=== PATIENT | female | born 1960 | race American Indian/Alaskan Native ===

== ENCOUNTER 2016-12-17 08:35 | Emergency (ER) | payer OTHER ==
[2016-12-17 08:37] VITALS: BMI 34.7
--- NOTE | 2016-12-17 09:23 | ED PDOC ---
Lower Extremity Pain/Injury Time Seen by Provider: 12/17/16 09:00 Chief Complaint (Nursing): Lower Extremity Problem/Injury Chief Complaint (Provider): Lower Extremity Problem/Injury History Per: Patient History/Exam Limitations: no limitations Onset/Duration Of Symptoms: Days Current Symptoms Are (Timing): Still Present Severity: Moderate Additional Complaint(s): Patient is a 56 year old female who presents to ED for let foot pain for 4 days. Patient state that 4 days ago a melody wearing boots stepped on her foot, notes pain to that area since the incident. Reports continued pain and swelling. Past Medical History Reviewed: Historical Data, Nursing Documentation, Vital Signs Vital Signs: Last Vital Signs Temp 97.9 F 12/17/16 08:38 Pulse 68 12/17/16 08:38 Resp 19 12/17/16 08:38 BP 164/86 H 12/17/16 08:38 Pulse Ox 100 12/17/16 08:38 - Medical History PMH: Diabetes, HTN - Surgical History Surgical History: No Surg Hx - Family History Family History: States: No Known Family Hx - Living Arrangements Living Arrangements: With Family - Home Medications Home Medications: Ambulatory Orders Medication Instructions Recorded Sodium Chloride [Saline Nasal 45 ml NS TID #1 spr 06/03/14 [place] 45 ml] Acetaminophen/Hydrocodone Bi 1 tab PO Q6 PRN #20 tab 06/26/14 [Hydrocodone Bitartrate/APAP 325 mg-5 mg] - Allergies Allergies/Adverse Reactions: Allergies Allergy/AdvReac Type Severity Reaction Status Date / Time metformin Allergy RASH Verified 12/17/16 08:58 Review of Systems Cardiovascular: Negative for: Chest Pain Respiratory: Negative for: Shortness of Breath Musculoskeletal: Positive for: Foot Pain. Negative for: Back Pain, Leg Pain Neurological: Negative for: Weakness, Numbness Physical Exam - Reviewed Nursing Documentation Reviewed: Yes Vital Signs Reviewed: Yes - Physical Exam Appears: Positive for: Non-toxic, No Acute Distress Skin: Positive for: Normal Color, Warm Eye Exam: Positive for: Normal appearance Neck: Positive for: Normal, Painless ROM Back: Positive for: Normal Inspection Extremity: Positive for: Normal ROM, Tenderness (Left foot swelling and tenderness to dosum and lateral malleolous. neurovascular intact. normal pulses and skin color. cap refill less than 2 s.). Negative for: Calf Tenderness, Deformity Neurologic/Psych: Positive for: Alert, Oriented - ECG O2 Sat by Pulse Oximetry: 100 (RA) Pulse Ox Interpretation: Normal Medical Decision Making Medical Decision Making: Time: 0915 Initial impression: Foot injury r/o fracture Initial plan: -- Motrin PO -- Foot/ Ankle Xray Time: 1050 Ankle Xray results PROCEDURE: Left Ankle Radiographs. HISTORY: ankle inkjury COMPARISON: None FINDINGS: BONES: There is an acute mildly displaced fracture in the lateral malleolus. There is no acute displaced fracture in the visualized tibia. There is diffuse bone demineralization. There is a prominent plantar calcaneal spur and dorsal calcaneal enthesophyte. JOINTS: No osteoarthritis. Ankle mortise maintained. Talar dome intact there is a small joint effusion. SOFT TISSUES: There is moderate lateral soft tissue swelling. OTHER FINDINGS: None. IMPRESSION: Acute mildly displaced fracture in the lateral malleolus and moderate lateral soft tissue swelling. Time: 1051 Foot Xray results PROCEDURE: Left Foot Radiographs. HISTORY: ankle pain COMPARISON: None. FINDINGS: BONES: There is diffuse bone demineralization. There is no acute fracture or bone destruction. 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 The remaining joint spaces are preserved. SOFT TISSUES: Normal. OTHER FINDINGS: None. IMPRESSION: No acute displaced fracture or dislocation. Time: 1145 Podiatry consulted, will evaluate patient at bedside. Time: 1215 Patient evaluated by podiatry, foot wrapped and scheduled for follow up outpatient. Scribe Attestation: Documented by Guera Murphy acting as a scribe for Carmelina Remy MD MD Scribe Attestation: All medical record entries made by the Scribe were at my direction and personally dictated by me. I have reviewed the chart and agree that the record accurately reflects my personal performance of the history, physical exam, medical decision making, and the department course for this patient. I have also personally directed, reviewed, and agree with the discharge instructions and disposition. Disposition - Clinical Impression Clinical Impression: Ankle fracture - Patient ED Disposition Is Patient to be Admitted: No Counseled Patient/Family Regarding: Studies Performed, Diagnosis, Need For Followup - Disposition Referrals: [facility] [Outside] Podiatry Clinic [Outside] Disposition: Routine/Home Disposition Time: 10:30 Condition: GOOD Additional Instructions: follow up with podiatry clinic in one week. return to the ED with any worsening or concerning symptoms. Instructions: Ankle Fracture (ED) Forms: [facility] ED School/Work Excuse
--- NOTE | 2016-12-17 10:52 | RAD ---
PROCEDURE: Left Ankle Radiographs. HISTORY: ankle inkjury COMPARISON: None FINDINGS: BONES: There is an acute mildly displaced fracture in the lateral malleolus. There is no acute displaced fracture in the visualized tibia. There is diffuse bone demineralization. There is a prominent plantar calcaneal spur and dorsal calcaneal enthesophyte. JOINTS: No osteoarthritis. Ankle mortise maintained. Talar dome intact there is a small joint effusion. SOFT TISSUES: There is moderate lateral soft tissue swelling. OTHER FINDINGS: None. IMPRESSION: Acute mildly displaced fracture in the lateral malleolus and moderate lateral soft tissue swelling.
--- NOTE | 2016-12-17 10:53 | RAD ---
PROCEDURE: Left Foot Radiographs. HISTORY: ankle pain COMPARISON: None. FINDINGS: BONES: There is diffuse bone demineralization. There is no acute fracture or bone destruction. 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 The remaining joint spaces are preserved. SOFT TISSUES: Normal. OTHER FINDINGS: None. IMPRESSION: No acute displaced fracture or dislocation.
--- NOTE | 2016-12-17 12:38 | CP.PCM.CON ---
History of Present Illness - History of Present Illness History of Present Illness: 56 year old female with PMHx of DM, HTN presents to the ED with left ankle pain. She state that on Thursday someone stepped on her ankle and she has been having pain ever since. She states that she tried ice and advil to help with the pain but they provided little relief. She admits to swelling and pain on the outside of her ankle. Admits to trouble walking due to the pain. She denies any n/v/f/c/sob/cp. Past Patient History - Past Social History Smoking Status: Light Smoker < 10 Cigarettes Daily - CARDIAC Hx Hypertension: Yes - ENDOCRINE/METABOLIC Hx Diabetes Mellitus Type 2: Yes - PSYCHIATRIC Hx Substance Use: No - SURGICAL HISTORY Hx Surgeries: Yes Hx Tonsillectomy: Yes Other/Comment: Right Knee - ANESTHESIA Hx Anesthesia: Yes Hx Anesthesia Reactions: No Meds Allergies/Adverse Reactions: Allergies Allergy/AdvReac Type Severity Reaction Status Date / Time metformin Allergy RASH Verified 12/17/16 08:58 Physical Exam - Constitutional Appears: Well, Non-toxic, No Acute Distress - Extremities Exam Additional comments: Vasc: DP and PT pulses are palpable 2/4 b/l. CFT < 3 seconds to all digits b/l. Skin temperature is warm to warm proximal to distal. Non-pitting edema noted to the ankle circumferential. Neuro: Protective sensation is intact. Pain sensation is intact. Derm: No open lesions noted. Ecchymosis noted over the lateral malleolus. Ortho: Pain with eversion, inversion, plantarflexion, and dorsiflexion on the left. Pain on palpation of the lateral malleolus, ATFL, PTFL, and CFL on the left. No pain with palpation of Achilles or compression of calf muscle b/l. . - Neurological Exam Neurological exam: Alert, Oriented x3 - Psychiatric Exam Psychiatric exam: Normal Affect, Normal Mood Results - Vital Signs Recent Vital Signs: Last Vital Signs Temp 97.9 F 12/17/16 08:38 Pulse 68 12/17/16 08:38 Resp 19 12/17/16 08:38 BP 164/86 H 12/17/16 08:38 Pulse Ox 100 12/17/16 11:55 Assessment & Plan - Assessment and Plan (Free Text) Assessment: 56 year old female with left lateral malleolus fracture Plan: Patient examined and evaluated Chart and vitals reviewed Discussed in detail with attending, Dr. Caldwell Radiograph reviewed- mildly displaced fibular fracture noted to the left ankle Patient dressed with modified woods compressive dressing and posterior splint Patient instructed to remain non-WB with crutches/ rolling walker until she follows up in podiatry clinic Patient instructed on proper use of crutches, and given Rx for rolling walker Patient to keep dressing clean, dry, intact, and do not get dressing wet Patient to follow up in Podiatry clinic Thursday
[2016-12-17 13:53] VITALS: BP 120/78; PULSE 78; RESP 20; TEMP 97.6
[2016-12-19 05:32] VITALS: O2SAT 100
== END 2016-12-17 13:53 | disposition home or self-care (01) ==
LOC: H.ER 08:35
DX: S82.892A Other fracture of left lower leg, initial encounter for closed fracture (principal); W22.8XXA Striking against or struck by other objects, initial encounter; Y92.89 Other specified places as the place of occurrence of the external cause; E11.9 Type 2 diabetes mellitus without complications; I10 Essential (primary) hypertension

== ENCOUNTER 2017-05-10 12:27 | Inpatient (IN) | payer OTHER ==
[~2017-05-10 12:27] MED LIST: Pneumococcal 23-Valent Vaccine IM ONE
[2017-05-10 12:28] VITALS: BMI 34.7
[2017-05-10] MEDS ORDERED: Sodium Chloride 0.9% 1,000 ML IV STA ×3 (12:50→17:22)
--- NOTE | 2017-05-10 13:11 | ED PDOC ---
Hyperglycemia/Hypoglycemia Chief Complaint (Nursing): High Blood Sugar Chief Complaint (Provider): Dizziness, weakness History Per: Patient History/Exam Limitations: no limitations Onset/Duration Of Symptoms: Other (one week) : The patient does not have any of the infectious symptoms listed except for those marked. Additional Complaint(s): Patient is a 56 y/o female with a past medical history of diabetes and hypertension presenting to the emergency department for dizziness and generalized weakness since last week with associated urinary frequency. Denies abdominal pain and vomiting. Of note, patient takes Glyburide 2 mg/2 tabs twice per day. PCP: none provided. Past Medical History Reviewed: Historical Data, Nursing Documentation, Vital Signs Vital Signs: Last Vital Signs Temp 98.0 F 05/10/17 12:29 Pulse 58 L 05/10/17 12:29 Resp 19 05/10/17 12:29 BP 130/78 05/10/17 12:29 Pulse Ox 100 05/10/17 12:29 - Medical History PMH: Diabetes, HTN - Surgical History Surgical History: Tonsillectomy - Family History Family History: States: Unknown Family Hx - Living Arrangements Living Arrangements: Other (homeless) - Social History Current smoker - smoking cessation education provided: Yes (less than ten cigarettes per day) Ex-Smoker (has not smoked in the last 12 months): No Alcohol: Social Drugs: Denies - Home Medications Home Medications: Ambulatory Orders Medication Instructions Recorded Atorvastatin [Lipitor] 10 mg PO DAILY 05/10/17 Benazepril/Hydrochlorothiazide 1 tab PO DAILY 05/10/17 [Benazepril-Hctz 20-25 mg Tab] Glimepiride [amaRYL] 4 mg PO DAILY 05/10/17 Metoprolol Tartrate [Lopressor] 50 mg PO BID 05/10/17 - Allergies Allergies/Adverse Reactions: Allergies Allergy/AdvReac Type Severity Reaction Status Date / Time metformin Allergy RASH Verified 12/17/16 08:58 Review of Systems ROS Statement: Except As Marked, All Systems Reviewed And Found Negative Constitutional: Positive for: Weakness (generalized) Gastrointestinal: Negative for: Vomiting, Abdominal Pain Genitourinary Female: Positive for: Frequency Neurological: Positive for: Dizziness Physical Exam - Reviewed Nursing Documentation Reviewed: Yes Vital Signs Reviewed: Yes - Physical Exam Appears: Positive for: No Acute Distress Head Exam: Positive for: ATRAUMATIC, NORMAL INSPECTION, NORMOCEPHALIC Skin: Positive for: Normal Color, Warm, Dry Eye Exam: Positive for: EOMI, Normal appearance, PERRL Neck: Positive for: Normal, Painless ROM, Supple Cardiovascular/Chest: Positive for: Chest Non Tender, Bradycardia. Negative for : Murmur Respiratory: Positive for: Normal Breath Sounds. Negative for: Accessory Muscle Use, Respiratory Distress Gastrointestinal/Abdominal: Positive for: Normal Exam, Soft. Negative for: Tenderness Extremity: Positive for: Normal ROM. Negative for: Pedal Edema Neurologic/Psych: Positive for: Alert, Oriented (x3) - Laboratory Results Result Diagrams: 05/10/17 13:00 05/10/17 16:30 - ECG ECG Rhythm: Positive for: Sinus Bradycardia Interpretation Of ECG: Rate: 46 bpm O2 Sat by Pulse Oximetry: 100 (RA) Pulse Ox Interpretation: Normal - Progress ED Course And Treament: BS > 500 noted in ED EKG: Sinus bradycardia 46 bpm no ectopy no acute changes INsulin 10 units iv x 1 dose NS 1 liter wide open x 2 venous blood gas reviewed. lactate elevated (due to dehydration) venous ph 7.39 Repeat Blood sugar 430. Insulin 4 units iv NS 3rd liter 500 ml per darrian d/w Dr. Gaona d/w Dr. Stock for admission Medical Decision Making Medical Decision Making: Time: 12:49 Initial plan: Labs EKG ED Urine Dipstick Chest X-Ray Normal Saline Urine Culture Urinalysis Reevaluation 13:55 Chest x-ray reviewed and findings noted as follows: LUNGS: The lungs are well inflated and clear. PLEURA: No pneumothorax or pleural fluid seen. CARDIOVASCULAR: Normal. OSSEOUS STRUCTURES: No significant abnormalities. VISUALIZED UPPER ABDOMEN: Normal. OTHER FINDINGS: None. IMPRESSION: No active pulmonary disease. Scribe Attestation: Documented by Heather Wilcox, acting as a scribe for HIEN Marks. Provider Scribe Attestation: All medical record entries made by the Scribe were at my direction and personally dictated by me. I have reviewed the chart and agree that the record accurately reflects my personal performance of the history, physical exam, medical decision making, and the department course for this patient. I have also personally directed, reviewed, and agree with the discharge instructions and disposition. Disposition - Clinical Impression Clinical Impression: Hyperglycemia - Patient ED Disposition Is Patient to be Admitted: Yes - Disposition Disposition Time: 17:45 Condition: FAIR Forms: [facility] ([place]) - Pt Status Changed To: Hospital Disposition Of: Observation
[2017-05-10 13:12] LABS: BASO % 0.6 % (0.0-2.0); EOS % 0.6 % (0.0-4.0); HEMATOCRIT 38.9 % (34.0-47.0); LYMPH # 2.1 K/uL (1.0-4.3); LYMPH % 30.5 % (20.0-40.0); MEAN CELL VOLUME 92.5 fl (81.0-99.0); MEAN CORPUSCULAR HEMOGLOBIN 30.7 pg (27.0-31.0); MEAN CORPUSCULAR HGB CONC 33.2 g/dL (33.0-37.0); MEAN PLATELET VOLUME 9.2 fl (7.2-11.7); MONO # 0.5 K/uL (0.0-0.8); MONO % 6.9 % (0.0-10.0); NEUT # 4.1 K/uL (1.8-7.0); NEUT % 61.4 % (50.0-75.0); RED CELL DISTRIBUTION WIDTH 12.3 % (11.5-14.5); WHITE BLOOD COUNT 6.8 K/uL (4.8-10.8)
[2017-05-10 13:18] LABS: RBC URINE 2 /hpf (0-3); URINE BACTERIA RARE (<OCC); URINE BILIRUBIN NEGATIVE (NEGATIVE); URINE BLOOD NEGATIVE (NEGATIVE); URINE COLOR STRAW (YELLOW); URINE GLUCOSE (UA) >=500 mg/dL (Normal); URINE KETONE NEGATIVE (NEGATIVE); URINE LEUKOCYTE ESTERASE NEG Leu/uL (Negative); URINE PROTEIN NEGATIVE (NEGATIVE); URINE UROBILINOGEN 0.2-1.0 mg/dL (0.2-1.0); WBC URINE 2 /hpf (0-5)
[2017-05-10 13:26] LABS: ALB/GLOB RATIO 1.9 (1.0-2.1); ALKALINE PHOSPHATASE 98 U/L (38-126); ALT/SGPT 28 U/L (9-52); AST/SGOT 15 U/L (14-36); BILIRUBIN,TOTAL 0.9 mg/dl (0.2-1.3); BLOOD UREA NITROGEN 20 mg/dl (7-17); CALCIUM 9.9 mg/dL (8.4-10.2); CARBON DIOXIDE 26 mmol/L (22-30); CHLORIDE 90 mmol/L (98-107); GFR AFRICAN-AMERICAN > 60; POTASSIUM 4.5 MMOL/L (3.6-5.0); SODIUM 130 mmol/l (132-148); TOTAL PROTEIN 6.8 G/DL (6.3-8.2)
[2017-05-10 13:39] LABS: VENOUS BLOOD GAS BASE EXCESS 2.8 mmol/L (0.0-2.0); VENOUS BLOOD GAS PCO2 47 mmHg (40-60); VENOUS BLOOD PH 7.39 (7.32-7.43)
[2017-05-10 13:49] LABS: GLUCOSE,RANDOM 848 mg/dL (65-105)
--- NOTE | 2017-05-10 13:57 | RAD ---
PROCEDURE: CHEST RADIOGRAPH, 1 VIEW HISTORY: ROUTINE COMPARISON: None available. FINDINGS: LUNGS: The lungs are well inflated and clear. PLEURA: No pneumothorax or pleural fluid seen. CARDIOVASCULAR: Normal. OSSEOUS STRUCTURES: No significant abnormalities. VISUALIZED UPPER ABDOMEN: Normal. OTHER FINDINGS: None. IMPRESSION: No active pulmonary disease.
[2017-05-10] MEDS ORDERED: Insulin Regular 100 units/ml IVP STA (14:19)
[2017-05-10 16:43] LABS: BLOOD UREA NITROGEN 15 mg/dl (7-17); CALCIUM 9.3 mg/dL (8.4-10.2); CARBON DIOXIDE 24 mmol/L (22-30); CHLORIDE 101 mmol/L (98-107); GFR AFRICAN-AMERICAN > 60; GLUCOSE,RANDOM 396 mg/dL (65-105); POTASSIUM 3.9 MMOL/L (3.6-5.0); SODIUM 135 mmol/l (132-148)
[2017-05-10] MEDS ORDERED: Insulin Regular 100 units/ml IVP ONE ×2 (17:22→18:27)
[2017-05-10] MEDS ORDERED: Insulin Regular 100 units/ml SC SCH (23:15)
[2017-05-11] MEDS ORDERED: Pneumococcal 23-Valent Vaccine IM ONE (06:00)
[2017-05-11 06:16] LABS: HEMATOCRIT 37.4 % (34.0-47.0); MEAN CELL VOLUME 91.7 fl (81.0-99.0); MEAN CORPUSCULAR HEMOGLOBIN 30.6 pg (27.0-31.0); MEAN CORPUSCULAR HGB CONC 33.4 g/dL (33.0-37.0); RED CELL DISTRIBUTION WIDTH 12.4 % (11.5-14.5); WHITE BLOOD COUNT 6.6 K/uL (4.8-10.8)
[2017-05-11 06:23] LABS: ALKALINE PHOSPHATASE 76 U/L (38-126); ALT/SGPT 27 U/L (9-52); AST/SGOT 14 U/L (14-36); BILIRUBIN,TOTAL 0.9 mg/dl (0.2-1.3); BLOOD UREA NITROGEN 14 mg/dl (7-17); CALCIUM 9.5 mg/dL (8.4-10.2); CARBON DIOXIDE 24 mmol/L (22-30); CHLORIDE 103 mmol/L (98-107); CHOLESTEROL 164 mg/dL (0-199); GFR AFRICAN-AMERICAN > 60; GLUCOSE,RANDOM 356 mg/dL (65-105); POTASSIUM 3.9 MMOL/L (3.6-5.0); SODIUM 137 mmol/l (132-148); TOTAL PROTEIN 5.6 G/DL (6.3-8.2)
[2017-05-11 06:24] LABS: ALB/GLOB RATIO 1.5 (1.0-2.1)
[2017-05-11] MEDS: Insulin Regular 100 units/ml SC SCH ×2 (06:45→13:42)
[2017-05-11 06:53] LABS: THYROID STIMULATING HORMONE 0.61 mIU/ML (0.46-4.68)
[2017-05-11] MEDS ORDERED: GlipiZIDE 10 mg SR Tab PO SCH (09:00)
[2017-05-11] MEDS ORDERED: BENAZEPRIL PO SCH (09:00)
[2017-05-11] MEDS ORDERED: HYDROCHLOROTHIAZIDE PO SCH (09:00)
[2017-05-11] MEDS: Enoxaparin 40 mg Syringe SC SCH (09:42)
--- NOTE | 2017-05-11 10:57 | CARD ---
APPROVED REPORT EKG Measurement Heart [id number] <Conclusion> Sinus bradycardia Septal infarct, age undetermined Abnormal ECG
[2017-05-11] MEDS: GlipiZIDE 10 mg SR Tab PO SCH (18:03)
[2017-05-11] MEDS: Insulin Lispro (humaLOG) 100 Units/ml Inj SC SCH ×3 (18:04→21:47)
--- NOTE | 2017-05-11 19:31 | HP ---
DATE OF ADMISSION: CHIEF COMPLAINT: Dizziness and weakness. HISTORY OF PRESENT ILLNESS: This is a 56-year-old female known case of diabetes, hypertension, noncompliance in medications and medical followup who has not seen doctor for few months, was feeling very weak and dizzy. The patient was seen in emergency room where the patient was found to have blood sugar of 800, so the patient was admitted for further management. REVIEW OF SYSTEMS: Positive for generalized malaise, weakness, fatigue, tired, dizziness. Review of systems negative for headache, loss of consciousness, chest pain, shortness of breath, nausea, vomiting, diarrhea, constipation, any new joint or extremity pain. Review of systems of all other organ system is unremarkable. PAST MEDICAL HISTORY: Significant for hypertension and diabetes. PAST SURGICAL HISTORY: Remarkable for tonsil surgery. PERSONAL HISTORY: The patient is currently nonsmoker, nondrinker, no substance abuse. The patient has active smoking of less than 10 cigarettes a day. ALLERGIES: THE PATIENT IS NOT ALLERGIC TO ANY MEDICATION OTHER THAN METFORMIN. MEDICATIONS: The patient is on atorvastatin, glimepiride, and metoprolol. FAMILY HISTORY: The patient's family history is noncontributory. PHYSICAL EXAMINATION: GENERAL: Well built, well nourished, overweight 56-year-old female in no acute distress. VITAL SIGNS: Temperature 97.9, pulse 53, respirations 20, blood pressure 123/54. HEENT: Pupils are reacting to light. No nystagmus. Normocephalic and atraumatic skull. NECK: No JVD. No thyromegaly. No lymphadenopathy. HEART: S1 and S2 normal, regular. No significant murmur, gallop, or rub. LUNGS: Shows good bilateral air entry. No rales or rhonchi. ABDOMEN: Soft, nontender. No organomegaly. No fluid. Bowel sounds are present. EXTREMITIES: No edema. No calf swelling. No tenderness. No acute ischemia. CENTRAL NERVOUS SYSTEM: Essentially unchanged. There is no sign of any acute gross focal, motor, or sensory neurological deficit. DIAGNOSTIC DATA: Available diagnostic data reviewed. WBC 6.6, hemoglobin 7.7, hematocrit 37.5, platelet 152. Sodium 137, potassium 3.9, chloride 103, bicarb 24, BUN 17, creatinine 0.6. Accu-Cheks 351, 320, 339, 362, and 366. SMA-12 is unremarkable. Troponin level was less than 0.01. Chest x-ray, prior EKG does not show any acute SVT changes. IMPRESSION: Type 2 diabetes with hyperglycemia, hypertension, elevated cholesterol. On telemetry monitoring does not reveal any significant arrhythmias. PLAN: Plan as ordered. Case and plan discussed with patient. Eamon Stock MD
[2017-05-11] MEDS ORDERED: Insulin Detemir 100 Units/ml Inj SC SCH ×2 (22:00)
--- NOTE | 2017-05-12 02:11 | CON ---
DATE: ENDOCRINOLOGY CONSULT LOCATION: Room [address], [address] [place] [address] HISTORY OF PRESENT ILLNESS: This is a 56-year-old female with known history of type 2 insulin-requiring diabetes presenting here with generalized body weakness and supervening dizziness and lightheadedness and is now being referred for diabetic evaluation and management. PAST MEDICAL HISTORY: History of type 2 insulin-requiring diabetes, previously on Lantus, which has been discontinued and is currently on Amaryl given as 4 mg once daily as ordered, history of hypertension and dyslipidemia. FAMILY HISTORY: Positive for diabetes and hypertension. SOCIAL HISTORY: The patient admits to homelessness and lives in a [facility] locally as noted. Also admits to cigarette smoking about half a pack a day for many years now. No other known substance use. REVIEW OF SYSTEMS: As mentioned above. Admits to generalized body weakness with progressively worsening dizziness and lightheadedness and increasing somnolence and lethargy as noted. No chest pains or palpitations or PND's. However, admits to increasing bouts of shortness of breath, especially on exertion. Her oral intake is variable with nausea, dyspepsia and vague upper abdominal pain. Also admits to marked polyuria, nocturia, polyphagia, and about 5-pound or so weight loss. Also admits to lower extremity paresthesias, especially nocturnally. PHYSICAL EXAMINATION: GENERAL/VITAL SIGNS: An average built female in no apparent distress with a blood pressure of 140/80, pulse of 70 beats per minute regular, temperature 98, respirations 20, height is 5.6, and weight is 180. HEENT: Head is normocephalic. Eyes; anicteric with pink conjunctivae. Funduscopy not possible at this time. Ears, nose and throat are otherwise normal. NECK: Supple. Thyroid gland is normal in size. No carotid bruits or cervical adenopathy. Cardiopulmonary: Some adynamic precordium. S1 and S2 is rapid and regular. LUNGS: Clear to auscultation. ABDOMEN: Flat and soft with positive bowel sounds. EXTREMITIES: No peripheral edema. Pulses are +2 bilaterally. SKIN: The skin turgor is coarse and dry and buccal mucosa is parched and dry. LABORATORY DATA: Hemoglobin is 12.9, hematocrit of 38.9, MCV 92, platelets 320, and WBC 6.8. Initial chemistry showed a BUN of 20, sodium 130, potassium 4.5, chloride 90, CO2 26, glucose 848, and creatinine 0.6. Her glucose levels have ranged from 413 to over 500 mg/dL. Her hemoglobin A1c is 21.4%, which is extremely elevated and indicative of suboptimal metabolic control of her diabetic condition and clearly also would be insulin-requiring with this nature and degree of elevation. ASSESSMENT: This is a 56-year-old female with uncontrolled and decompensated type 2 insulin requiring diabetes presenting here with hyperosmolar hyperglycemic state and dehydration with spurious hyponatremia and prerenal azotemia as noted thereof. There is a very strong adherence factor in terms of her compliance to insulin therapy, as she was previously on insulin from the prior admissions as noted thereof. PLAN OF MANAGEMENT: As discussed with the patient and staff, we will modify her current insulin regimen and because of the marked hyperglycemic accelerations and glucose toxicity, she needs insulin at this time to reduce the glucose toxicity and also improve her metabolic and clinical symptoms. We will initiate a more physiologic insulin drug combination with Levemir to be given as 24 units subcutaneous at bedtime daily to start tonight. We will add Humalog given as 12 units subcutaneous t.i.d. before meals to start at dinner time today as ordered. We will modify the coverage scale to obviate hypoglycemia and detailed orders have been given for a low-dose algorithm using Humalog insulin as ordered. We will continue the Januvia given at 100 mg daily as ordered. We will, however, hold off further oral hypoglycemic therapy for now as noted. We will initiate diabetic education and dietary instructions at the time of this admission. It would probably been ideal, if she could continue the IV hydration to fully replenish the lost fluid and electrolytes accordingly. We will discuss with the high school social studies teacher regarding the need for maybe a subacute facility to at least optimize her metabolic control prior to going back to homeless residential at this time. We will follow and advise accordingly. Teresita French MD
[2017-05-12 06:38] LABS: HEMATOCRIT 36.4 % (34.0-47.0); MEAN CELL VOLUME 89.9 fl (81.0-99.0); MEAN CORPUSCULAR HGB CONC 34.4 g/dL (33.0-37.0); RED CELL DISTRIBUTION WIDTH 12.3 % (11.5-14.5); WHITE BLOOD COUNT 6.3 K/uL (4.8-10.8)
[2017-05-12 06:42] LABS: ALB/GLOB RATIO 1.4 (1.0-2.1); ALKALINE PHOSPHATASE 68 U/L (38-126); ALT/SGPT 22 U/L (9-52); AST/SGOT 12 U/L (14-36); BILIRUBIN,TOTAL 0.5 mg/dl (0.2-1.3); BLOOD UREA NITROGEN 21 mg/dl (7-17); CALCIUM 9.6 mg/dL (8.4-10.2); CARBON DIOXIDE 25 mmol/L (22-30); CHLORIDE 102 mmol/L (98-107); CHOLESTEROL 170 mg/dL (0-199); GFR AFRICAN-AMERICAN > 60; GLUCOSE,RANDOM 333 mg/dL (65-105); MAGNESIUM 1.4 MG/DL (1.6-2.3); PHOSPHOROUS 4.7 mg/dl (2.5-4.5); POTASSIUM 3.8 MMOL/L (3.6-5.0); SODIUM 136 mmol/l (132-148); TOTAL PROTEIN 5.7 G/DL (6.3-8.2)
[2017-05-12] MEDS: Insulin Lispro (humaLOG) 100 Units/ml Inj SC SCH ×8 (06:56→22:04)
[2017-05-12 07:09] LABS: THYROID STIMULATING HORMONE 1.16 mIU/ML (0.46-4.68)
[2017-05-12] MEDS: GlipiZIDE 10 mg SR Tab PO SCH ×2 (09:00→17:21)
[2017-05-12] MEDS: Enoxaparin 40 mg Syringe SC SCH (09:04)
--- NOTE | 2017-05-12 18:39 | CP.PCM.PN ---
<Princess Serra - Last Filed: 05/13/17 07:00> Subjective - Date & Time of Evaluation Date of Evaluation: 05/12/17 Time of Evaluation: 07:05 - Subjective Subjective: patient seen and examined with attending Denies Cp, SOB, N/V, abdominal pain, dizziness or other complains Afebrile, VS: Stable WNL NSR with bradycardia noted in monitoring specialist had an uneventful night Objective - Vital Signs/Intake and Output Vital Signs (last 24 hours): Temp Pulse Resp BP Pulse Ox 98.5 F 49 L 20 110/56 L 99 05/12/17 17:00 05/12/17 17:00 05/12/17 17:00 05/12/17 17:00 05/12/17 17:00 Intake and Output: 05/12/17 05/12/17 06:59 18:59 Intake Total 1560 Balance 1560 - Medications Medications: Current Medications Atorvastatin Calcium (Lipitor) 10 mg PO DAILY [facility] Last Admin: 05/12/17 09:00 Dose: 10 mg Enoxaparin Sodium (Lovenox) 40 mg SC DAILY [facility] PRN Reason: Protocol Last Admin: 05/12/17 09:04 Dose: 40 mg Glipizide (Glucotrol Xl) 10 mg PO ACBD [facility] Last Admin: 05/12/17 17:21 Dose: 10 mg Hydrochlorothiazide (Hydrodiuril) 25 mg PO DAILY [facility] Last Admin: 05/12/17 09:03 Dose: 25 mg Insulin Detemir (Levemir) 30 units SC HS AMEE Insulin Human Lispro (Humalog) 0 units SC ACHS [facility] PRN Reason: Protocol Last Admin: 05/12/17 17:20 Dose: Not Given Insulin Human Lispro (Humalog) 16 units SC AC [facility] Last Admin: 05/12/17 17:22 Dose: 16 units Lisinopril (Zestril) 20 mg PO DAILY [facility] Last Admin: 05/12/17 09:03 Dose: 20 mg Metoprolol Tartrate (Lopressor) 50 mg PO DAILY [facility] Last Admin: 05/12/17 08:58 Dose: 50 mg Sitagliptin Phosphate (Januvia) 100 mg PO DAILY [facility] Last Admin: 05/12/17 09:00 Dose: 100 mg - Labs Labs: 05/12/17 05:20 05/12/17 05:20 - Constitutional Appears: No Acute Distress - ENT Exam ENT Exam: Mucous Membranes Moist - Respiratory Exam Respiratory Exam: Clear to Ausculation Bilateral, NORMAL BREATHING PATTERN - Cardiovascular Exam Cardiovascular Exam: Bradycardia, REGULAR RHYTHM, +S1, +S2 - GI/Abdominal Exam GI & Abdominal Exam: Soft, Normal Bowel Sounds. absent: Tenderness - Extremities Exam Extremities Exam: Normal Inspection. absent: Calf Tenderness, Pedal Edema - Neurological Exam Neurological Exam: Awake, Oriented x3 - Skin Skin Exam: Dry, Intact, Normal Color Assessment and Plan - Assessment and Plan (Free Text) Plan: DM type 2 with Hyperglycemia uncontrolled Hgb A1C was 21.4 on 05/11/17 -c/w Levemir SC HS -c/w insulin Lispro as per Dr. French recommendations -c/w Insulin lispro by protocol -f/u accucheck -f/u Dr. French recommendations HTN c/w current medical Tx DVT prophylaxis Lovenox 40 mg SC <Eamon Stock K - Last Filed: 05/13/17 10:22> Objective - Vital Signs/Intake and Output Vital Signs (last 24 hours): Temp Pulse Resp BP Pulse Ox 98.0 F 53 L 18 111/70 100 05/13/17 08:00 05/13/17 08:13 05/13/17 08:00 05/13/17 08:00 05/13/17 08:00 - Medications Medications: Current Medications Atorvastatin Calcium (Lipitor) 10 mg PO DAILY [facility] Last Admin: 05/13/17 08:12 Dose: 10 mg Enoxaparin Sodium (Lovenox) 40 mg SC DAILY [facility] PRN Reason: Protocol Last Admin: 05/13/17 08:11 Dose: 40 mg Glipizide (Glucotrol Xl) 10 mg PO ACBD [facility] Last Admin: 05/13/17 08:12 Dose: 10 mg Hydrochlorothiazide (Hydrodiuril) 25 mg PO DAILY [facility] Last Admin: 05/13/17 08:11 Dose: 25 mg Insulin Detemir (Levemir) 30 units SC HS [facility] Last Admin: 05/12/17 22:06 Dose: 30 u Insulin Human Lispro (Humalog) 0 units SC [facility] PRN Reason: Protocol Last Admin: 05/13/17 06:42 Dose: Not Given Insulin Human Lispro (Humalog) 16 units SC AC [facility] Last Admin: 05/13/17 08:12 Dose: 16 units Lisinopril (Zestril) 20 mg PO DAILY [facility] Last Admin: 05/13/17 08:10 Dose: Not Given Metoprolol Tartrate (Lopressor) 50 mg PO DAILY [facility] Last Admin: 05/13/17 08:13 Dose: Not Given Sitagliptin Phosphate (Januvia) 100 mg PO DAILY [facility] Last Admin: 05/13/17 08:11 Dose: 100 mg - Labs Labs: 05/12/17 05:20 05/12/17 05:20 Assessment and Plan - Assessment and Plan (Free Text) Assessment: Patient was personally seen and examined by me in rounds with residents. Available labs and diagnostic data reviewed. Case, Patient's condition and management plan Discussed with residents in rounds. Agree with resident's progress note. Plan: As ordered.
[2017-05-12] MEDS ORDERED: Insulin Detemir 100 Units/ml Inj SC SCH (22:00)
--- NOTE | 2017-05-12 23:02 | PN ---
DATE: ENDO FOLLOWUP NOTE Svetlana in the room 410, bed 2. SUBJECTIVE: This is a 56-year-old female with recent uncontrolled type 2 insulin-requiring diabetes, presenting here with hypoosmolar hyperglycemic state and dehydration and is now being followed closely for metabolic management. Her glycemic levels are fluctuating as noted with the latest glucose levels ranging from 283 to 333 and 359 mmHg. Her hemoglobin A1c has been reported 21.4%, which is extremely elevated and indicative suboptimal metabolic control with diabetic condition and also the clear imperative leads for insulin administration as noted thereof. Her latest chemistry showed a BUN of 21, sodium 136, potassium 3.8, chloride 102, CO2 25, glucose 333, and creatinine is 0.7. So at this time, we will modify once again her basal and bolus insulin regimen and increase the Humalog to 16 units subcutaneous t.i.d. before meals to start at dinner time today as noted. We also increased the basal insulin given as Levemir to 30 units subcutaneous at bedtime daily to start tonight. We will modify the coverage scale to obviate hypoglycemia and detailed orders have been given accordingly. We will initiate diabetic education, and dietary instructions at the time of this admission. However, the biggest concern at this time is the patient's homelessness condition and the need for consistent meal timing and the meal timing and insulin administration is 5-10 minutes before the meals, correct but we over emphasized at this time. We will try to contact the public health social worker regarding this above mentioned implications of subsequent followup and subsequent need for closer metabolic and diabetic care even after discharge. We will follow and advice accordingly. Teresita French MD
[2017-05-13 04:57] VITALS: O2SAT 100
[2017-05-13] MEDS: Insulin Lispro (humaLOG) 100 Units/ml Inj SC SCH ×6 (06:42→17:18)
[2017-05-13] MEDS: Enoxaparin 40 mg Syringe SC SCH (08:11)
[2017-05-13] MEDS: GlipiZIDE 10 mg SR Tab PO SCH ×2 (08:12→17:43)
--- NOTE | 2017-05-13 14:49 | CP.PCM.PCO ---
Assessment/Plan - Assessment/Plan Assessment (Free Text): Pt stable, for d/c today. Per [place], pharmacists in the [facility], Januvia and Humalog not covered. Called amanda Suazo to d/c Januvia and change Levemir to Humilin N 24 units q HS and to give Humilin 70/30 30 units ACB and 20 units ACD. Rx given to CM who will attempt to get the insulin as well as the glucometer prior to pt d/c. - Problems Patient Problems: Problem List (Active/Current) Problem Status Onset Code Hyperglycemia Acute R73.9
[2017-05-13 15:51] VITALS: BP 148/70; PULSE 71; RESP 20; TEMP 98.2
--- NOTE | 2017-05-13 17:07 | CP.PCM.DIS ---
<Princess Serra - Last Filed: 05/13/17 17:05> Provider - Provider Date of Admission: 05/11/17 13:55 Attending physician: Eamon Stock MD Consults: Endocrinology, Dr. French Time Spent in preparation of Discharge (in minutes): 30 Diagnosis - Discharge Diagnosis (1) Diabetes mellitus type 2, uncontrolled Status: Chronic Comment: improving, continue management of BSL control as outpatient. C/w current recommended diabetic care including diet, and medical treatment. F/u as outpatient with PMD in 1 week. (2) Hypertension Status: Chronic Comment: controlled. Decreased metoprolol frequency from BID to daily. f/u with PMD in 1 week Hospital Course - Lab Results Lab Results: Most Recent Lab Values WBC 6.3 K/uL (4.8-10.8) 05/12/17 05:20 RBC 4.05 Mil/uL (3.80-5.20) 05/12/17 05:20 Hgb 12.5 g/dL (12.0-16.0) 05/12/17 05:20 Hct 36.4 % (34.0-47.0) 05/12/17 05:20 MCV 89.9 fl (81.0-99.0) 05/12/17 05:20 MCH 31.0 pg (27.0-31.0) 05/12/17 05:20 MCHC 34.4 g/dL (33.0-37.0) 05/12/17 05:20 RDW 12.3 % (11.5-14.5) 05/12/17 05:20 Plt Count 282 K/uL (130-400) D 05/12/17 05:20 MPV 9.2 fl (7.2-11.7) 05/10/17 13:00 Neut % (Auto) 61.4 % (50.0-75.0) 05/10/17 13:00 Lymph % (Auto) 30.5 % (20.0-40.0) 05/10/17 13:00 [place] % (Auto) 6.9 % (0.0-10.0) 05/10/17 13:00 Eos % (Auto) 0.6 % (0.0-4.0) 05/10/17 13:00 Baso % (Auto) 0.6 % (0.0-2.0) 05/10/17 13:00 Neut # 4.1 K/uL (1.8-7.0) 05/10/17 13:00 Lymph # 2.1 K/uL (1.0-4.3) 05/10/17 13:00 [place] # 0.5 K/uL (0.0-0.8) 05/10/17 13:00 Eos # 0.0 K/uL (0.0-0.7) 05/10/17 13:00 Baso # 0.0 K/uL (0.0-0.2) 05/10/17 13:00 pO2 41 mm/Hg (30-55) 05/10/17 13:29 VBG pH 7.39 (7.32-7.43) 05/10/17 13:29 VBG pCO2 47 mmHg (40-60) 05/10/17 13:29 VBG HCO3 26.5 mmol/L 05/10/17 13:29 VBG Total CO2 29.9 mmol/L (22-28) H 05/10/17 13:29 VBG O2 Sat (Calc) 83.4 % (40-65) H 05/10/17 13:29 VBG Base Excess 2.8 mmol/L (0.0-2.0) H 05/10/17 13:29 VBG Potassium 4.5 mmol/L (3.6-5.2) 05/10/17 13:29 Sodium 129.0 mmol/L (132-148) L 05/10/17 13:29 Chloride 89.0 mmol/L (98-107) L 05/10/17 13:29 Glucose > 750 mg/dL (65-105) H* 05/10/17 13:29 Lactate 2.2 mmol/L (0.7-2.1) H 05/10/17 13:29 FiO2 21.0 % 05/10/17 13:29 Crit Value Called To Steve forman 05/10/17 13:29 Crit Value Called By 05/10/17 13:29 Crit Value Read Back Y 05/10/17 13:29 Blood Gas Notified Time 1335 05/10/17 13:29 Sodium 136 mmol/l (132-148) 05/12/17 05:20 Potassium 3.8 MMOL/L (3.6-5.0) 05/12/17 05:20 Chloride 102 mmol/L (98-107) 05/12/17 05:20 Carbon Dioxide 25 mmol/L (22-30) 05/12/17 05:20 Anion Gap 13 (10-20) 05/12/17 05:20 BUN 21 mg/dl (7-17) H 05/12/17 05:20 Creatinine 0.7 mg/dL (0.7-1.2) 05/12/17 05:20 Est GFR ( Amer) > 60 05/12/17 05:20 Est GFR (Non-Af Amer) > 60 05/12/17 05:20 POC Glucose (mg/dL) 254 mg/dL (65-110) H 05/13/17 05:48 Random Glucose 333 mg/dL (65-105) H 05/12/17 05:20 Hemoglobin A1c 21.4 % (4.2-6.5) H 05/11/17 06:58 Calcium 9.6 mg/dL (8.4-10.2) 05/12/17 05:20 Phosphorus 4.7 mg/dl (2.5-4.5) H 05/12/17 05:20 Magnesium 1.4 MG/DL (1.6-2.3) L 05/12/17 05:20 Total Bilirubin 0.5 mg/dl (0.2-1.3) 05/12/17 05:20 AST 12 U/L (14-36) L 05/12/17 05:20 ALT 22 U/L (9-52) 05/12/17 05:20 Alkaline Phosphatase 68 U/L (38-126) 05/12/17 05:20 Troponin I < 0.0120 ng/mL (0.00-0.120) 05/10/17 13:00 Total Protein 5.7 G/DL (6.3-8.2) L 05/12/17 05:20 Albumin 3.3 g/dL (3.5-5.0) L 05/12/17 05:20 Globulin 2.4 gm/dL (2.2-3.9) 05/12/17 05:20 Albumin/Globulin Ratio 1.4 (1.0-2.1) 05/12/17 05:20 Triglycerides 154 mg/DL (0-149) H 05/12/17 05:20 Cholesterol 170 mg/dL (0-199) 05/12/17 05:20 LDL Cholesterol Direct 96 mg/dL (0-129) 05/12/17 05:20 HDL Cholesterol 36 MG/DL (30-70) 05/12/17 05:20 Vitamin B12 357 pg/mL (239-931) 05/11/17 05:00 25-OH Vitamin D Total 17.7 NG/ML (30.0-100.0) L 05/12/17 05:20 TSH 3rd Generation 1.16 mIU/ML (0.46-4.68) 05/12/17 05:20 Venous Blood Potassium 4.5 mmol/L (3.6-5.2) 05/10/17 13:29 Urine Color Straw (YELLOW) 05/10/17 12:54 Urine Clarity Clear (Clear) 05/10/17 12:54 Urine pH 7.0 (5.0-8.0) 05/10/17 12:54 Ur Specific Lyons 1.027 (1.003-1.030) 05/10/17 12:54 Urine Protein Negative mg/dL (NEGATIVE) 05/10/17 12:54 Urine Glucose (UA) >=500 mg/dL (Normal) 05/10/17 12:54 Urine Ketones Negative mg/dL (NEGATIVE) 05/10/17 12:54 Urine Blood Negative (NEGATIVE) 05/10/17 12:54 Urine Nitrate Negative (NEGATIVE) 05/10/17 12:54 Urine Bilirubin Negative (NEGATIVE) 05/10/17 12:54 Urine Urobilinogen 0.2-1.0 mg/dL (0.2-1.0) 05/10/17 12:54 Ur Leukocyte Esterase Neg Carlos/uL (Negative) 05/10/17 12:54 Urine RBC (Auto) 2 /hpf (0-3) 05/10/17 12:54 Urine Microscopic WBC 2 /hpf (0-5) 05/10/17 12:54 Ur Squamous Epith Cells 2 /hpf (0-5) 05/10/17 12:54 Urine Bacteria Rare (<OCC) 05/10/17 12:54 - Date & Time of H&P Date of H&P: 05/11/17 Time of H&P: 07:35 Discharge Exam - Head Exam Head Exam: ATRAUMATIC, NORMAL INSPECTION, NORMOCEPHALIC - Eye Exam Eye Exam: Normal appearance - ENT Exam ENT Exam: Mucous Membranes Moist - Respiratory Exam Respiratory Exam: Clear to PA & Lateral, NORMAL BREATHING PATTERN - Cardiovascular Exam Cardiovascular Exam: REGULAR RHYTHM, +S1, +S2 - GI/Abdominal Exam GI & Abdominal Exam: Normal Bowel Sounds, Soft. absent: Distended, Firm, Guarding, Rigid, Tenderness - Extremities Exam Extremities exam: normal inspection Additional comments: no calves tenderness, no edema noted - Neurological Exam Neurological exam: Alert, Oriented x3 - Skin Skin Exam: Dry, Normal Color, Warm Discharge Plan - Discharge Medications Prescriptions: GlipiZIDE SR [Glucotrol XL] 10 mg PO ACBD #60 tab Insulin Human NPH [Humulin N] 24 unit SQ HS #1 ml Insulin NPH Hum/Reg Insulin Hm [Humulin 70/30 Kwikpen] 30 unit SQ ACB #1 insuln.pen - Follow Up Plan Condition: GOOD Disposition: HOME/ ROUTINE Patient education suggested?: Yes Instructions: Diabetic Hyperglycemia (DC) Additional Instructions: f/u with PMD in 1 week c/w Diabetic care and management as recommended <Eamon Stock - Last Filed: 05/14/17 18:12> Provider - Provider Date of Admission: 05/11/17 13:55 Attending physician: Eamon Stock MD Hospital Course - Lab Results Lab Results: Most Recent Lab Values WBC 6.3 K/uL (4.8-10.8) 05/12/17 05:20 RBC 4.05 Mil/uL (3.80-5.20) 05/12/17 05:20 Hgb 12.5 g/dL (12.0-16.0) 05/12/17 05:20 Hct 36.4 % (34.0-47.0) 05/12/17 05:20 MCV 89.9 fl (81.0-99.0) 05/12/17 05:20 MCH 31.0 pg (27.0-31.0) 05/12/17 05:20 MCHC 34.4 g/dL (33.0-37.0) 05/12/17 05:20 RDW 12.3 % (11.5-14.5) 05/12/17 05:20 Plt Count 282 K/uL (130-400) D 05/12/17 05:20 MPV 9.2 fl (7.2-11.7) 05/10/17 13:00 Neut % (Auto) 61.4 % (50.0-75.0) 05/10/17 13:00 Lymph % (Auto) 30.5 % (20.0-40.0) 05/10/17 13:00 [place] % (Auto) 6.9 % (0.0-10.0) 05/10/17 13:00 Eos % (Auto) 0.6 % (0.0-4.0) 05/10/17 13:00 Baso % (Auto) 0.6 % (0.0-2.0) 05/10/17 13:00 Neut # 4.1 K/uL (1.8-7.0) 05/10/17 13:00 Lymph # 2.1 K/uL (1.0-4.3) 05/10/17 13:00 [place] # 0.5 K/uL (0.0-0.8) 05/10/17 13:00 Eos # 0.0 K/uL (0.0-0.7) 05/10/17 13:00 Baso # 0.0 K/uL (0.0-0.2) 05/10/17 13:00 pO2 41 mm/Hg (30-55) 05/10/17 13:29 VBG pH 7.39 (7.32-7.43) 05/10/17 13:29 VBG pCO2 47 mmHg (40-60) 05/10/17 13:29 VBG HCO3 26.5 mmol/L 05/10/17 13:29 VBG Total CO2 29.9 mmol/L (22-28) H 05/10/17 13:29 VBG O2 Sat (Calc) 83.4 % (40-65) H 05/10/17 13:29 VBG Base Excess 2.8 mmol/L (0.0-2.0) H 05/10/17 13:29 VBG Potassium 4.5 mmol/L (3.6-5.2) 05/10/17 13:29 Sodium 129.0 mmol/L (132-148) L 05/10/17 13:29 Chloride 89.0 mmol/L (98-107) L 05/10/17 13:29 Glucose > 750 mg/dL (65-105) H* 05/10/17 13:29 Lactate 2.2 mmol/L (0.7-2.1) H 05/10/17 13:29 FiO2 21.0 % 05/10/17 13:29 Crit Value Called To Steve forman 05/10/17 13:29 Crit Value Called By 23 05/10/17 13:29 Crit Value Read Back Y 05/10/17 13:29 Blood Gas Notified Time 1335 05/10/17 13:29 Sodium 136 mmol/l (132-148) 05/12/17 05:20 Potassium 3.8 MMOL/L (3.6-5.0) 05/12/17 05:20 Chloride 102 mmol/L (98-107) 05/12/17 05:20 Carbon Dioxide 25 mmol/L (22-30) 05/12/17 05:20 Anion Gap 13 (10-20) 05/12/17 05:20 BUN 21 mg/dl (7-17) H 05/12/17 05:20 Creatinine 0.7 mg/dL (0.7-1.2) 05/12/17 05:20 Est GFR ( Amer) > 60 05/12/17 05:20 Est GFR (Non-Af Amer) > 60 05/12/17 05:20 POC Glucose (mg/dL) 187 mg/dL (65-110) H 05/13/17 18:11 Random Glucose 333 mg/dL (65-105) H 05/12/17 05:20 Hemoglobin A1c 21.4 % (4.2-6.5) H 05/11/17 06:58 Calcium 9.6 mg/dL (8.4-10.2) 05/12/17 05:20 Phosphorus 4.7 mg/dl (2.5-4.5) H 05/12/17 05:20 Magnesium 1.4 MG/DL (1.6-2.3) L 05/12/17 05:20 Total Bilirubin 0.5 mg/dl (0.2-1.3) 05/12/17 05:20 AST 12 U/L (14-36) L 05/12/17 05:20 ALT 22 U/L (9-52) 05/12/17 05:20 Alkaline Phosphatase 68 U/L (38-126) 05/12/17 05:20 Troponin I < 0.0120 ng/mL (0.00-0.120) 05/10/17 13:00 Total Protein 5.7 G/DL (6.3-8.2) L 05/12/17 05:20 Albumin 3.3 g/dL (3.5-5.0) L 05/12/17 05:20 Globulin 2.4 gm/dL (2.2-3.9) 05/12/17 05:20 Albumin/Globulin Ratio 1.4 (1.0-2.1) 05/12/17 05:20 Triglycerides 154 mg/DL (0-149) H 05/12/17 05:20 Cholesterol 170 mg/dL (0-199) 05/12/17 05:20 LDL Cholesterol Direct 96 mg/dL (0-129) 05/12/17 05:20 HDL Cholesterol 36 MG/DL (30-70) 05/12/17 05:20 Vitamin B12 357 pg/mL (239-931) 05/11/17 05:00 25-OH Vitamin D Total 17.7 NG/ML (30.0-100.0) L 05/12/17 05:20 TSH 3rd Generation 1.16 mIU/ML (0.46-4.68) 05/12/17 05:20 Venous Blood Potassium 4.5 mmol/L (3.6-5.2) 05/10/17 13:29 Urine Color Straw (YELLOW) 05/10/17 12:54 Urine Clarity Clear (Clear) 05/10/17 12:54 Urine pH 7.0 (5.0-8.0) 05/10/17 12:54 Ur Specific [place] 1.027 (1.003-1.030) 05/10/17 12:54 Urine Protein Negative mg/dL (NEGATIVE) 05/10/17 12:54 Urine Glucose (UA) >=500 mg/dL (Normal) 05/10/17 12:54 Urine Ketones Negative mg/dL (NEGATIVE) 05/10/17 12:54 Urine Blood Negative (NEGATIVE) 05/10/17 12:54 Urine Nitrate Negative (NEGATIVE) 05/10/17 12:54 Urine Bilirubin Negative (NEGATIVE) 05/10/17 12:54 Urine Urobilinogen 0.2-1.0 mg/dL (0.2-1.0) 05/10/17 12:54 Ur Leukocyte Esterase Neg Carlos/uL (Negative) 05/10/17 12:54 Urine RBC (Auto) 2 /hpf (0-3) 05/10/17 12:54 Urine Microscopic WBC 2 /hpf (0-5) 05/10/17 12:54 Ur Squamous Epith Cells 2 /hpf (0-5) 05/10/17 12:54 Urine Bacteria Rare (<OCC) 05/10/17 12:54
--- NOTE | 2017-05-14 08:07 | PN ---
DATE: 05/13/2017 ENDO-FOLLOWUP NOTE LOCATION: Room 410. SUBJECTIVE: This is a 56-year-old female with recent uncontrolled type 2 insulin-requiring diabetes, presenting here with hyperosmolar hyperglycemic state and dehydration and is now being followed closely for metabolic management. Her glycemic levels are fluctuating, but improved and the latest glucose levels are ranging from 177 to 217 and 254 mg/dL. LABORATORY DATA: Her latest chemistry showed a BUN of 21, sodium 136, potassium 3.8, chloride 102, CO2 of 25, glucose 333, and creatinine 0.7. Hemoglobin A1c is 21.4%. PLAN: So, at this time we will continue the same basal and bolus insulin regimen as ordered with Levemir given as 30 units subcutaneous at bedtime daily. We will also continue the Humalog given as 16 units given subcutaneous t.i.d before meals as ordered. We will titrate incremental as indicated to optimize metabolic control. We will obtain serial chemistry and supplement accordingly as needed. We will follow and advise accordingly. Teresita French MD
== END 2017-05-13 18:25 | disposition home or self-care (01) | DRG 294 ==
LOC: H.ER 12:27 → H.ERHOLD 17:46 → H.TEL 20:33 → OBSVTOIN 05-11 13:55
PROVIDERS: ADMIT Internal Medicine; ATTEND Internal Medicine
PROC: 3E0234Z Introduction of Serum, Toxoid and Vaccine into Muscle, Percutaneous Approach (ICD-10-PCS; principal; 2017-05-11)
DX: E11.00 Type 2 diabetes mellitus with hyperosmolarity without nonketotic hyperglycemic-hyperosmolar coma (NKHHC) (principal); I10 Essential (primary) hypertension; E87.1 Hypo-osmolality and hyponatremia; E86.0 Dehydration; E11.65 Type 2 diabetes mellitus with hyperglycemia; E78.00 Pure hypercholesterolemia, unspecified; R79.89 Other specified abnormal findings of blood chemistry; F17.210 Nicotine dependence, cigarettes, uncomplicated; Z59.0 Homelessness; Z79.4 Long term (current) use of insulin; Z79.899 Other long term (current) drug therapy; Z91.19 Patient's noncompliance with other medical treatment and regimen; Z79.84 Long term (current) use of oral hypoglycemic drugs; R00.1 Bradycardia, unspecified; R35.0 Frequency of micturition; Z23 Encounter for immunization

== ENCOUNTER 2017-05-21 14:53 | Emergency (ER) | payer OTHER ==
[2017-05-21 14:54] VITALS: BMI 34.7
[2017-05-21 15:00] VITALS: RESP 18; TEMP 97.2; O2SAT 99
--- NOTE | 2017-05-21 15:29 | ED PDOC ---
HPI: General Adult Time Seen by Provider: 05/21/17 15:12 Chief Complaint (Nursing): Dizziness/Lightheaded Chief Complaint (Provider): Dizziness/Headache/Blurred Vision History Per: Patient History/Exam Limitations: no limitations Onset/Duration Of Symptoms: Days (x7) Current Symptoms Are (Timing): Better Additional Complaint(s): Svetlana Shelton is a 56 year old female with a history of hypercholesterolemia, hypertension, and diabetes that presents to the ED with a chief complaint of blurry vision, a frontal headache, and difficulty balancing after sudden movement that she has been experiencing for the past week. Patient reports that upon waking up this morning, both of her arms felt numb, but that the feeling has since resolved. She states that she was admitted last week for uncontrolled diabetes and was put on insulin, and that her symptoms began one day after she started her insulin. She denies any chest pain, shortness of breath, abdominal pain, nausea, vomiting, diarrhea, urinary symptoms, or leg pain. The headache is mild. Not worst in her life. Past Medical History Reviewed: Historical Data, Nursing Documentation, Vital Signs Vital Signs: Last Vital Signs Temp 97.2 F L 05/21/17 14:57 Pulse 74 05/21/17 14:57 Resp 18 05/21/17 14:57 BP 160/70 H 05/21/17 14:57 Pulse Ox 99 05/21/17 17:20 - Medical History PMH: Diabetes, HTN, Hypercholesterolemia - Surgical History Surgical History: Tonsillectomy - Family History Family History: States: Unknown Family Hx - Social History Current smoker - smoking cessation education provided: No Alcohol: None Drugs: Denies - Home Medications Home Medications: Ambulatory Orders Medication Instructions Recorded Atorvastatin [Lipitor] 10 mg PO DAILY 05/10/17 Benazepril/Hydrochlorothiazide 1 tab PO DAILY 05/10/17 [Benazepril-Hctz 20-25 mg Tab] GlipiZIDE SR [Glucotrol XL] 10 mg PO ACBD #60 tab 05/13/17 Insulin Human NPH [Humulin N] 24 unit SQ HS #1 ml 05/13/17 Insulin NPH Hum/Reg Insulin Hm 30 unit SQ ACB #1 insuln.pen 05/13/17 [Humulin 70/30 Kwikpen] Metoprolol Tartrate [Lopressor] 50 mg PO DAILY tab 05/13/17 - Allergies Allergies/Adverse Reactions: Allergies Allergy/AdvReac Type Severity Reaction Status Date / Time metformin Allergy RASH Verified 05/10/17 20:04 Review of Systems ROS Statement: Except As Marked, All Systems Reviewed And Found Negative Constitutional: Positive for: Other (difficulty balancing after sudden movement) Eyes: Positive for: Vision Change (blurred vision) Cardiovascular: Negative for: Chest Pain Respiratory: Negative for: Shortness of Breath Gastrointestinal: Negative for: Nausea, Vomiting, Abdominal Pain, Diarrhea Genitourinary Female: Negative for: Dysuria, Frequency Musculoskeletal: Negative for: Leg Pain Neurological: Positive for: Numbness (gone now), Headache (frontal headache, described pain as "dull"), Dizziness. Negative for: Weakness Physical Exam - Reviewed Nursing Documentation Reviewed: Yes Vital Signs Reviewed: Yes - Physical Exam Appears: Positive for: Non-toxic, No Acute Distress Head Exam: Positive for: ATRAUMATIC, NORMOCEPHALIC Skin: Positive for: Normal Color, Warm Eye Exam: Positive for: Normal appearance, EOMI, PERRL ENT: Positive for: Normal ENT Inspection Neck: Positive for: Normal, Painless ROM, Supple Cardiovascular/Chest: Positive for: Regular Rate, Rhythm. Negative for: Murmur Respiratory: Positive for: Normal Breath Sounds. Negative for: Wheezing Gastrointestinal/Abdominal: Positive for: Normal Exam, Soft. Negative for: Tenderness Back: Positive for: Normal Inspection. Negative for: L CVA Tenderness, R CVA Tenderness Extremity: Positive for: Normal ROM. Negative for: Tenderness, Pedal Edema, Swelling Neurologic/Psych: Positive for: Alert, land measurer II-XII, Oriented. Negative for: Motor/Sensory Deficits - Laboratory Results Result Diagrams: 05/21/17 16:30 05/21/17 16:37 Interpretation Of Abn Labs: 314 glucose - ECG ECG: Positive for: Interpreted By Me, Viewed By Me ECG Rhythm: Positive for: Normal QRS, Normal ST Segment, Sinus Rhythm Interpretation Of Abn EKG: same as old O2 Sat by Pulse Oximetry: 99 (RA) Pulse Ox Interpretation: Normal - Radiology X-Ray: Interpreted by Me, Viewed By Me X-Ray Interpretation: No Acute Disease - CT Scan/US head Other Rad Studies (CT/US): Read By Radiologist Other Rad Interpretation: no acute - Progress ED Course And Treament: 1837: Stable. AAOx3. Asymptomatic. Ambulating with no issues. Fu with pcp to get control of diabetes. Use glucometer (pt. not using it currently.). Tolerate PO. Medical Decision Making Medical Decision Making: Impression: Improper Diabetes Control Plan: * Glucose, Blood, POC * Reevaluation Patient's glucose is 386. Scribe Attestation: Documented by Iris Rivas, acting as a scribe for Gregor Sandra MD. Provider Scribe Attestation: All medical record entries made by the Scribe were at my direction and personally dictated by me. I have reviewed the chart and agree that the record accurately reflects my personal performance of the history, physical exam, medical decision making, and the department course for this patient. I have also personally directed, reviewed, and agree with the discharge instructions and disposition. Disposition - Clinical Impression Clinical Impression: Hyperglycemia - Patient ED Disposition Is Patient to be Admitted: No Counseled Patient/Family Regarding: Studies Performed, Diagnosis, Need For Followup - Disposition Referrals: [facility] [Outside] - 05/25/17 Disposition: Routine/Home Disposition Time: 17:00 Condition: STABLE Additional Instructions: Return if not better in 3 days. Use your glucose monitoring machine daily. Instructions: Diabetic Hyperglycemia (ED) Forms: [employer] (Omani)
[2017-05-21] MEDS ORDERED: Sodium Chloride 0.9% 500 ML IV STA (15:35)
[2017-05-21] MEDS ORDERED: Sodium Chloride 0.9% 1,000 ML IV STA (15:36)
--- NOTE | 2017-05-21 16:37 | CT ---
PROCEDURE: CT HEAD WITHOUT CONTRAST. HISTORY: headache COMPARISON: None available. TECHNIQUE: Axial computed tomography images were obtained through the head/brain without intravenous contrast. Coronal and sagittal reconstructed images. Radiation dose: Total exam DLP = 745.55 mGy-cm. This CT exam was performed using one or more of the following dose reduction techniques: Automated exposure control, adjustment of the mA and/or kV according to patient size, and/or use of iterative reconstruction technique. FINDINGS: HEMORRHAGE: No intracranial hemorrhage. BRAIN: No mass effect or edema. No atrophy or chronic microvascular ischemic changes. VENTRICLES: Unremarkable. No hydrocephalus. CALVARIUM: Unremarkable. PARANASAL SINUSES: Unremarkable as visualized. No significant inflammatory changes. MASTOID AIR CELLS: Unremarkable as visualized. No inflammatory changes. OTHER FINDINGS: None. IMPRESSION: No acute intracranial abnormalities. No significant findings to account for the clinical presentation.
[2017-05-21 16:59] LABS: BASO # 0.1 K/uL (0.0-0.2); BASO % 0.8 % (0.0-2.0); EOS # 0.1 K/uL (0.0-0.7); EOS % 1.1 % (0.0-4.0); HEMATOCRIT 33.2 % (34.0-47.0); LYMPH # 2.4 K/uL (1.0-4.3); LYMPH % 31.9 % (20.0-40.0); MEAN CORPUSCULAR HEMOGLOBIN 31.1 pg (27.0-31.0); MEAN CORPUSCULAR HGB CONC 33.5 g/dL (33.0-37.0); MEAN PLATELET VOLUME 9.5 fl (7.2-11.7); MONO # 0.6 K/uL (0.0-0.8); MONO % 7.6 % (0.0-10.0); NEUT # 4.5 K/uL (1.8-7.0); NEUT % 58.6 % (50.0-75.0); NRBC % 0.1 % (0.0-0.0); RED CELL DISTRIBUTION WIDTH 12.8 % (11.5-14.5); WHITE BLOOD COUNT 7.6 K/uL (4.8-10.8)
[2017-05-21 17:09] LABS: ALB/GLOB RATIO 1.6 (1.0-2.1); ALKALINE PHOSPHATASE 59 U/L (38-126); ALT/SGPT 30 U/L (9-52); AST/SGOT 19 U/L (14-36); BILIRUBIN,TOTAL 0.5 mg/dl (0.2-1.3); BLOOD UREA NITROGEN 18 mg/dl (7-17); CALCIUM 9.2 mg/dL (8.4-10.2); CARBON DIOXIDE 23 mmol/L (22-30); CHLORIDE 106 mmol/L (98-107); GFR AFRICAN-AMERICAN > 60; GLUCOSE,RANDOM 314 mg/dL (65-105); SODIUM 139 mmol/l (132-148); TOTAL PROTEIN 5.8 G/DL (6.3-8.2)
[2017-05-21] MEDS ORDERED: Insulin Regular 100 units/ml IV STA (17:38)
--- NOTE | 2017-05-21 18:02 | RAD ---
HISTORY: high sugar COMPARISON: Chest x-ray performed 05/10/17 TECHNIQUE: Chest, one view. FINDINGS: Examination limited by habitus. LUNGS: No focal consolidation. Please note that chest x-ray has limited sensitivity for the detection of pulmonary masses. PLEURA: No significant pleural effusion identified. No definite pneumothorax . CARDIOVASCULAR: Heart size appears within normal limits. OSSEOUS STRUCTURES: No acute osseous abnormality identified. VISUALIZED UPPER ABDOMEN: Unremarkable. OTHER FINDINGS: None. IMPRESSION: No focal consolidation, significant pleural effusion, or definite pneumothorax identified.
[2017-05-21 18:35] VITALS: BP 144/50; PULSE 55
--- NOTE | 2017-05-22 11:22 | CARD ---
APPROVED REPORT EKG Measurement Heart [id number] <Conclusion> Sinus bradycardia Anteroseptal infarct, age undetermined Abnormal ECG
--- NOTE | 2017-05-22 11:23 | CARD ---
APPROVED REPORT EKG Measurement Heart [id number] <Conclusion> Sinus bradycardia with sinus arrhythmia Septal infarct, age undetermined Abnormal ECG
== END 2017-05-21 19:10 | disposition home or self-care (01) ==
LOC: H.ER 14:53
DX: E11.65 Type 2 diabetes mellitus with hyperglycemia (principal); Z79.4 Long term (current) use of insulin; I10 Essential (primary) hypertension
CPT/HCPCS: 70450; 71010; 80053; 82948; 84484; 85025; 93005; 96360; 99285; J7040

== ENCOUNTER 2017-05-31 10:46 | Emergency (ER) | payer OTHER ==
[2017-05-31 10:50] VITALS: BMI 29.8
[2017-05-31 10:51] VITALS: BP 147/66; PULSE 53; RESP 17; TEMP 98.5; O2SAT 100
--- NOTE | 2017-05-31 11:32 | ED PDOC ---
Upper Extremity Pain/Injury Time Seen by Provider: 05/31/17 10:59 Chief Complaint (Nursing): Upper Extremity Problem/Injury Chief Complaint (Provider): Bilateral Arm Numbness History Per: Patient History/Exam Limitations: no limitations Onset/Duration Of Symptoms: Days (x2 weeks) Current Symptoms Are (Timing): Still Present Additional Complaint(s): Svetlana Shelton is a 56 year old female with a history of diabetes that presents to the ED with a chief complaint of numbness and tingling bilaterally of arms that she has been experiencing for the past two weeks. Patient states that every time she falls asleep she would be woken up after about an hour of sleep due to numbness radiating from her hands up to her shoulders, and that the feelings subside after movement of her arms. She denies any fevers, chills, chest pain, shortness of breath, headache, dizziness, GI problems, or injuries. Of Note: Patient is homeless, and reports that though she uses insulin she does not check her sugar because she [facility] [place] [facility]. Past Medical History Reviewed: Historical Data, Nursing Documentation, Vital Signs Vital Signs: Last Vital Signs Temp 98.5 F 05/31/17 10:50 Pulse 53 L 05/31/17 10:50 Resp 17 05/31/17 10:50 BP 147/66 05/31/17 10:50 Pulse Ox 100 05/31/17 10:50 - Medical History PMH: Diabetes, HTN, Hypercholesterolemia - Surgical History Surgical History: Tonsillectomy - Family History Family History: States: Unknown Family Hx - Living Arrangements Living Arrangements: Other (nondomiciled) - Home Medications Home Medications: Ambulatory Orders Medication Instructions Recorded Atorvastatin [Lipitor] 10 mg PO DAILY 05/10/17 Benazepril/Hydrochlorothiazide 1 tab PO DAILY 05/10/17 [Benazepril-Hctz 20-25 mg Tab] GlipiZIDE SR [Glucotrol XL] 10 mg PO ACBD #60 tab 05/13/17 Insulin Human NPH [Humulin N] 24 unit SQ HS #1 ml 05/13/17 Insulin NPH Hum/Reg Insulin Hm 30 unit SQ ACB #1 insuln.pen 05/13/17 [Humulin 70/30 Kwikpen] Metoprolol Tartrate [Lopressor] 50 mg PO DAILY tab 05/13/17 Gabapentin [Neurontin] 300 mg PO TID #90 cap 05/31/17 - Allergies Allergies/Adverse Reactions: Allergies Allergy/AdvReac Type Severity Reaction Status Date / Time metformin Allergy RASH Verified 05/31/17 11:15 Review of Systems Constitutional: Negative for: Fever, Chills Eyes: Positive for: Other (blurred vision b/l) Cardiovascular: Negative for: Chest Pain Respiratory: Negative for: Shortness of Breath Gastrointestinal: Negative for: Nausea, Vomiting, Diarrhea Musculoskeletal: Negative for: Back Pain, Other (denies difficulty ambulating) Neurological: Positive for: Numbness (b/l of arms). Negative for: Headache, Dizziness Physical Exam - Reviewed Nursing Documentation Reviewed: Yes Vital Signs Reviewed: Yes - Physical Exam Appears: Positive for: Non-toxic, No Acute Distress Head Exam: Positive for: ATRAUMATIC, NORMOCEPHALIC Skin: Positive for: Normal Color, Warm. Negative for: Rash Eye Exam: Positive for: Normal appearance, EOMI, PERRL Neck: Positive for: Normal, Supple Cardiovascular/Chest: Positive for: Regular Rate, Rhythm. Negative for: Murmur Respiratory: Positive for: Normal Breath Sounds. Negative for: Wheezing Pulses-Radial (L): 2+ Pulses-Radial (R): 2+ Gastrointestinal/Abdominal: Positive for: Normal Exam, Soft. Negative for: Tenderness Extremity: Positive for: Normal ROM (full ROM arms), Other (No sensory loss of arms) Neurologic/Psych: Positive for: Alert, field logistics coordinator II-XII, Oriented. Negative for: Motor/Sensory Deficits - ECG O2 Sat by Pulse Oximetry: 100 (RA) Pulse Ox Interpretation: Normal Medical Decision Making Medical Decision Making: Impression: Diabetic Neuropathy Plan: * Patient will be given Rx for Neurontin and advised to follow up with endorcrinologist. Patient is stable for discharge. Scribe Attestation: Documented by Iris Rivas, acting as a scribe for Danielle Gaona MD. Provider Scribe Attestation: All medical record entries made by the Scribe were at my direction and personally dictated by me. I have reviewed the chart and agree that the record accurately reflects my personal performance of the history, physical exam, medical decision making, and the department course for this patient. I have also personally directed, reviewed, and agree with the discharge instructions and disposition. Disposition - Clinical Impression Clinical Impression: Diabetic neuropathy - Patient ED Disposition Is Patient to be Admitted: No Doctor Will See Patient In The: Office Counseled Patient/Family Regarding: Rx Given - Disposition Referrals: [facility] [Outside] [facility] [Outside] Disposition: Routine/Home Disposition Time: 11:15 Condition: STABLE Prescriptions: Gabapentin [Neurontin] 300 mg PO TID #90 cap Instructions: Diabetic Neuropathy (ED) Forms: [employer] (Greek) - POA Present On Arrival: None
== END 2017-05-31 11:54 | disposition home or self-care (01) ==
LOC: H.ER 10:46
DX: E11.40 Type 2 diabetes mellitus with diabetic neuropathy, unspecified (principal); Z79.4 Long term (current) use of insulin; E78.00 Pure hypercholesterolemia, unspecified; I10 Essential (primary) hypertension

== ENCOUNTER 2017-06-02 09:49 | Emergency (ER) | payer OTHER ==
[2017-06-02 09:49] VITALS: BMI 29.8
[2017-06-02 09:55] VITALS: BP 148/70; PULSE 60; RESP 20; TEMP 98.4; O2SAT 100
--- NOTE | 2017-06-02 10:28 | ED PDOC ---
HPI: General Adult Time Seen by Provider: 06/02/17 10:03 Chief Complaint (Nursing): Med Refill Chief Complaint (Provider): Med refill History Per: Patient Additional Complaint(s): Pt presents to ED without any physical complaints, reports that she is homeless and [facility] [place]. Pt is a diabteric and keeps her medications in the staff fridge; hoewver, this am they were gone. Pt needs refills of: GlipiZIDE SR [Glucotrol XL] 10 mg PO ACBD #60 tab Insulin Human NPH [Humulin N] 24 unit SQ HS #1 ml Insulin NPH Hum/Reg Insulin Hm [Humulin 70/30 Kwikpen] 30 unit SQ ACB #1 insuln.pen Past Medical History Reviewed: Historical Data, Nursing Documentation, Vital Signs Vital Signs: Last Vital Signs Temp 98.4 F 06/02/17 09:54 Pulse 60 06/02/17 09:54 Resp 20 06/02/17 09:54 BP 148/70 06/02/17 09:54 Pulse Ox 100 06/02/17 10:28 - Medical History PMH: Diabetes, HTN, Hypercholesterolemia - Surgical History Surgical History: Tonsillectomy - Family History Family History: States: Unknown Family Hx - Living Arrangements Living Arrangements: Other - Social History Current smoker - smoking cessation education provided: No Alcohol: None Drugs: Denies - Home Medications Home Medications: Ambulatory Orders Medication Instructions Recorded Atorvastatin [Lipitor] 10 mg PO DAILY 05/10/17 Benazepril/Hydrochlorothiazide 1 tab PO DAILY 05/10/17 [Benazepril-Hctz 20-25 mg Tab] Metoprolol Tartrate [Lopressor] 50 mg PO DAILY tab 05/13/17 Gabapentin [Neurontin] 300 mg PO TID #90 cap 05/31/17 GlipiZIDE SR [Glucotrol XL] 10 mg PO ACBD #60 tab 06/02/17 Insulin Human NPH [Humulin N] 24 unit SQ HS #1 ml 06/02/17 Insulin NPH Hum/Reg Insulin Hm 30 unit SQ ACB #1 insuln.pen 06/02/17 [Humulin 70/30 Kwikpen] - Allergies Allergies/Adverse Reactions: Allergies Allergy/AdvReac Type Severity Reaction Status Date / Time metformin Allergy RASH Verified 06/02/17 10:05 Review of Systems ROS Statement: Except As Marked, All Systems Reviewed And Found Negative Physical Exam - Reviewed Nursing Documentation Reviewed: Yes Vital Signs Reviewed: Yes - Physical Exam Appears: Positive for: Well, Non-toxic, No Acute Distress Head Exam: Positive for: ATRAUMATIC, NORMAL INSPECTION, NORMOCEPHALIC Skin: Positive for: Normal Color, Warm, DRY Eye Exam: Positive for: EOMI, Normal appearance, PERRL ENT: Positive for: Normal ENT Inspection Neck: Positive for: Normal, Painless ROM Cardiovascular/Chest: Positive for: Regular Rate, Rhythm Respiratory: Positive for: CNT, Normal Breath Sounds Gastrointestinal/Abdominal: Positive for: Normal Exam, Bowel Sounds, Soft Back: Positive for: Normal Inspection Extremity: Positive for: Normal ROM Neurologic/Psych: Positive for: Alert, Oriented - ECG O2 Sat by Pulse Oximetry: 100 Medical Decision Making Medical Decision Making: FS glucose: 391 Given SQ Insulin 6 u at this time. RX refills administered. Disposition - Clinical Impression Clinical Impression: Medication refill - Patient ED Disposition Is Patient to be Admitted: No - Disposition Disposition: Routine/Home Disposition Time: 10:35 Condition: STABLE Prescriptions: GlipiZIDE SR [Glucotrol XL] 10 mg PO ACBD #60 tab Insulin Human NPH [Humulin N] 24 unit SQ HS #1 ml Insulin NPH Hum/Reg Insulin Hm [Humulin 70/30 Kwikpen] 30 unit SQ ACB #1 insuln.pen Instructions: Medicine Refill (ED) Forms: [employer] (South Korean) - POA Present On Arrival: Poor Glycemic Control
[2017-06-02] MEDS ORDERED: Insulin Regular 100 units/ml SC STA (10:29)
[2017-06-02] MEDS ORDERED: Insulin Regular 100 units/ml ONE (10:57)
== END 2017-06-02 11:21 | disposition home or self-care (01) ==
LOC: H.ER 09:49
DX: E11.9 Type 2 diabetes mellitus without complications (principal); I10 Essential (primary) hypertension; Z79.4 Long term (current) use of insulin; E78.00 Pure hypercholesterolemia, unspecified; Z59.0 Homelessness; Z76.0 Encounter for issue of repeat prescription